=== PATIENT | male | born 1965 | race Caucasian/White ===

== ENCOUNTER 2018-12-01 11:52 | Inpatient (IN) | payer OTHER ==
[~2018-12-01] VITALS: Ht 165.1 cm; Wt 84.0 kg
--- NOTE | 2018-12-01 12:19 | PHYS DOC ---
Past History Past Medical History: No Pertinent History Past Surgical History: Other Alcohol Use: None Drug Use: None Adult General Chief Complaint Chief Complaint: INSECT BITE HPI HPI 53-year-old male presents with cellulitis and abscess. The patient has had this lesion for days. He has been seen by another physician a couple of times. He had lanced twice, but no incision. He was placed on unknown antibiotic. He has only had 3 doses. The redness is spreading. He now has some swelling in the inferior elbow. He was sent here by a physician because they felt the patient might need IV antibiotics and an incision and drain. He denies fever or chills. He has no other complaints. Review of Systems Review of Systems Constitutional: Denies fever or chills [] Eyes: Denies change in visual acuity, redness, or eye pain [] HENT: Denies nasal congestion or sore throat [] Respiratory: Denies cough or shortness of breath [] Cardiovascular: No additional information not addressed in HPI [] GI: Denies abdominal pain, nausea, vomiting, bloody stools or diarrhea [] : Denies dysuria or hematuria [] Musculoskeletal: Denies back pain or joint pain [] Integument: Abscess and cellulitis to the left forearm[] Neurologic: Denies headache, focal weakness or sensory changes [] Endocrine: Denies polyuria or polydipsia [] All other systems were reviewed and found to be within normal limits, except as documented in this note. Allergies Allergies Allergies Coded Allergies Type Severity Reaction Last Updated Verified Penicillins Allergy Unknown 12/01/18 Yes Physical Exam Physical Exam Constitutional: Well developed, well nourished, no acute distress, non-toxic appearance. [] HENT: Normocephalic, atraumatic, bilateral external ears normal, oropharynx moist, no oral exudates, nose normal. [] Eyes: PERRLA, EOMI, conjunctiva normal, no discharge. [] Neck: Normal range of motion, no tenderness, supple, no stridor. [] Cardiovascular:Heart rate regular rhythm, no murmur [] Lungs & Thorax: Bilateral breath sounds clear to auscultation [] Abdomen: Bowel sounds normal, soft, no tenderness, no masses, no pulsatile masses. [] Skin: Erythema of the entire left forearm from wrist to elbow, warmth, 3 cm fluctuant area consistent with abscess.[] Back: No tenderness, no CVA tenderness. [] Extremities: No tenderness, no cyanosis, no clubbing, ROM intact, no edema. [] Neurologic: Alert and oriented X 3, normal motor function, normal sensory function, no focal deficits noted. [] Psychologic: Affect normal, judgement normal, mood normal. [] Current Patient Data Vital Signs Vital Signs Date Time Temp Pulse Resp B/P (MAP) Pulse Ox O2 Delivery O2 Flow Rate FiO2 12/01/18 12:00 97.6 87 20 98 Room Air EKG EKG [] Radiology/Procedures Radiology/Procedures [] Course & Med Decision Making Course & Med Decision Making Pertinent Labs and Imaging studies reviewed. (See chart for details) The patient's labs are unremarkable. His expanding cellulitis is concerning. I believe he needs IV antibiotics. I have placed him on vancomycin and Rocephin. I performed an I&D and sent and abscess culture. See incision and drain note for more details. I discussed the patient with Dr. Winston and he has accepted him for admission. [] Dragon Disclaimer Dragon Disclaimer This electronic medical record was generated, in whole or in part, using a voice recognition dictation system. Incision and Drainage Indication: Cellulitis and abscess of the forearm Procedure: I obtained verbal consent from the patient for incision and drainage of his forearm abscess. The skin was prepped with alcohol solution. 2% lidocaine with epinephrine was used, a total of 1 mL. I then made a 5 mm incision in the middle of the fluctuant area. There was purulent discharge. No wound culture was obtained. Loculations were broken up with a sterile Q-tip. Further review material was expressed. The wound was left open and a clean dressing was applied. The patient was started on antibiotics. The patient tolerated the procedure well. Complications: None Departure Departure: Impression: Primary Impression: Cellulitis and abscess of upper extremity Disposition: ADMITTED INPATIENT Admitting Physician: Erendira Winston Condition: STABLE Referrals: PCP,OTONIEL (PCP) NAYLA LEDESMA DO Dec 01, 2018 12:19
[2018-12-01] MEDS ORDERED: IV NORMAL SALINE 1,000ML 1,000 ML IV ONE (12:30)
[2018-12-01 12:41] LABS: BASO % 0 % (0-3); EOS # 0.1 x10^3/uL (0.0-0.7); EOS % 1 % (0-3); HEMATOCRIT 43.7 % (39.0-53.0); LYMPH # 1.1 x10^3/uL (1.0-4.8); LYMPH % 10 % (24-48); MEAN CORPUSCULAR HEMOGLOBIN 33 pg (25-35); MEAN CORPUSCULAR HGB CONC 34 g/dL (31-37); MEAN CORPUSCULAR VOLUME 95 fL (79-100); MONO # 1.3 x10^3/uL (0.0-1.1); MONO % 12 % (0-9); NEUT # 8.3 x10^3uL (1.8-7.7); NEUT % 77 % (31-73); PLATELET COUNT 285 x10^3/uL (140-400); RED BLOOD COUNT 4.59 x10^6/uL (4.30-5.70); RED CELL DISTRIBUTION WIDTH 12.9 % (11.5-14.5); WHITE BLOOD COUNT 10.8 x10^3/uL (4.0-11.0)
[2018-12-01 12:51] LABS: ALBUMIN 3.9 g/dL (3.4-5.0); ALBUMIN/GLOBULIN RATIO 0.9 (1.0-1.7); CALCIUM 9.5 mg/dL (8.5-10.1); CREATININE 1.4 mg/dL (0.7-1.3); POTASSIUM 4.3 mmol/L (3.5-5.1); TOTAL BILIRUBIN 0.8 mg/dL (0.2-1.0); TOTAL PROTEIN 8.3 g/dL (6.4-8.2)
[2018-12-01] MEDS ORDERED: IV NORMAL SALINE 50ML 50 ML ONE (13:34)
[2018-12-01] MEDS ORDERED: cefTRIAXone SODIUM 1 GM VIAL ONE (13:34)
[2018-12-01] MEDS ORDERED: VANCOMYCIN 2 GM in IV NORMAL SALINE 500ML 500 ML IV ONE (14:00)
[2018-12-01 14:23] VITALS: BP 161/113
[2018-12-01] MEDS ORDERED: VANCOMYCIN PER PHARMACY MC PRN (15:30)
--- NOTE | 2018-12-01 15:54 | NUR ---
Pharmacy Vancomycin Dosing Note S:Consulted to monitor and dose vancomycin started 12/01/18. O:HEYDI DONAHUE is a 53 year old M with Cellulitis, . Height: 5 feet, 5 inches Weight: 83.183877 kg [place] Body Weight: Adjusted Body Weight: Dosing Weight: Actual Other Antibiotics: MERREM 1GM IV Q8H LABS: Last BUN: 13 Last Creatinine: 1.4 Creatinine Clearance: 60.66 Last WBC: 10.8 Vancomycin Dosing: Loading Dose: 2000 mg x1 Dosing Weight: Actual Target Trough: 15-20 A: Based on: Actual weight, renal function and indication P: 1. Begin Vancomycin 1250 mg IV q12h 2. Follow up Trough level on 12/03/18 at 0130 3. Pharmacy will continue to monitor, follow and adjust therapy as needed. GARRETT LAINEZ, 12/01/18 [id number]
--- NOTE | 2018-12-01 16:02 | HP ---
ADMIT DATE: 12/01/2018 HISTORY OF PRESENT ILLNESS: The patient is a 53-year-old male patient, an inmate at [facility], who came to the Emergency Room with cellulitis and possible abscess. The patient has had this lesion for days. He has been seen by another physician a couple of times. He had lanced twice, but no incision. He was placed on an unknown antibiotic. He only took 3 doses. The redness was spreading, now has some swelling in the inferior ____ that extending back all the way to the left elbow. He was sent to the Emergency Room because it was felt that he might need IV antibiotic and then incision and drainage. He denied any fever, chills or rigors. 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 In any case, he was evaluated in the Emergency Room and was found to have markedly indurated area and cellulitis and was started on IV vancomycin and Rocephin. PAST MEDICAL HISTORY: Significant for migraine headache and traumatic brain injury. PAST SURGICAL HISTORY: Significant for bilateral orchiopexy. ALLERGIES: He is allergic to PENICILLIN. MEDICATIONS: He is currently on no medication. FAMILY HISTORY: He has 2 brothers. The younger brother was shot to . The other brother and younger sister are both healthy. His father at the age of 77 because of Alzheimer disease. Mother at age of 67 because of the complication of diabetes, COPD, and pulmonary embolism. SOCIAL HISTORY: He is , has 2 daughters and 1 son. He is an ex-smoker, quit 5 years ago. 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 REVIEW OF SYSTEMS: The patient denied any blurring of vision, cataract, glaucoma or macular degeneration. Denied any earache, tinnitus or sensorineural deafness. Denied any nosebleeds, stuffy nose or postnasal drip. Denied any sore throat, sore tongue, toothache, hoarseness of voice or difficulty swallowing. He denied any nausea, vomiting, diarrhea or constipation. Denied any hematemesis, melena or hematochezia. Denied any dysuria, frequency or hematuria. Denied any chest pain, shortness of breath, orthopnea, paroxysmal nocturnal dyspnea. Denied any cough, phlegm or hemoptysis. Denied any chills, rigors or fever. PHYSICAL EXAMINATION: GENERAL: When I examined him, he looked well and was clearly in no apparent respiratory distress. No pallor, jaundice, cyanosis or thyromegaly. No jugular venous distention. No lower limb edema. VITAL SIGNS: His heart rate was 77, blood pressure was 141/86, temperature was 97.6, respiratory rate was 20, and oxygen saturation was 97% on room air. HEAD, EYES, EARS, NOSE AND THROAT: Showed normocephalic, atraumatic. NECK: Supple. HEART: Showed normal first and second heart sounds with no gallop, rub or murmur. CHEST: Clear to auscultation. No crepitation or rhonchi. ABDOMEN: Distended, soft, nontender. NEUROLOGIC: He was awake, alert, responding appropriately. All cranial nerves intact. EXTREMITIES: He moves extremities without difficulty. He ambulates without assistance or assistive devices. Examination of the left upper extremity compared to the right showed that he has an area of erythema involving the left forearm extending all the way to the distal aspect of the left arm and has also markedly indurated area with an area that has been apparently incised by the physician there. It is markedly indurated. I not see any fluctuating areas. LABORATORY DATA: His lab work showed that his white cell count was 10,800, hemoglobin 15, hematocrit 44, MCV 95, and platelet count 285,000. His chemistry showed a serum sodium 139, potassium 4.3, chloride 102, bicarbonate 27, anion gap of 10, BUN 13, creatinine 1.4, estimated GFR was 53 mL per minute. Her glucose 101, calcium was 9.5. Total bilirubin, AST, ALT, alkaline phosphatase were normal. Total protein was 8.3, albumin 3.9. His lactic acid was 1.1. IMPRESSION: In summary, this is a 53-year-old male patient, an inmate at [facility], who came in with marked redness and swelling of his left forearm. Apparently, it was lanced twice before and was started on oral antibiotic, the name of which he does not know. Basically, culture was taken from the wound and the patient was started on IV vancomycin as well as ceftriaxone. I will continue with these antibiotics, continue with pain management and I will also arrange for him to have a CT scan of his left forearm and to see if there is any fluid collection that can be incised and drained. JARON OAKES MD DR: DELFIN/darleen JOB#: [id number] / [id number]
--- NOTE | 2018-12-01 16:07 | NUR ---
PT is able to verbalize understanding of poc and orientation to unit. PT report his is incarcerated at [facility] and does work at [employer]. 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 Pt was unsure if he hurt it when welding or was a spider bite. PT has had it lanced twice at the [facility] [facility]. The Ed today did I and D and culture as well. PT is resting in bed. PT does not need to have a guard, but cannot leave the campus. Call number in chart when pt is to be dcYani Wheeler RN
[2018-12-01] MEDS: IBUPROFEN 800 MG TABLET. PO PRN (17:22)
[2018-12-01] MEDS: MEROPENEM 1 GM in IV NORMAL SALINE 100ML 100 ML IV SCH (17:29)
--- NOTE | 2018-12-01 17:30 | RAD ---
CT UPPR EXTREMTY WO CONTRST LT Indication: Mid forearm posterior buttock bifid versus foreign body. Drainage x2. Exposure: One or more of the following individualized dose reduction techniques were utilized for this examination: 1. Automated exposure control 2. Adjustment of the mA and/or kV according to patient size 3. Use of iterative reconstruction technique. Technique: Standard imaging without intravenous contrast. Findings: Ill-defined stranding density within the subcutaneous fat at the posterior forearm from the elbow through the wrist. This is compatible with edema or cellulitis. No evidence of an organized drainable fluid collection or abscess although CT can be relatively insensitive for small collection. No evidence of radiopaque or metallic foreign body in the soft tissues. No evidence of bone destruction. No acute fracture. No periosteal reaction. IMPRESSION: Diffuse soft tissue edema or cellulitis along the posterior forearm. No evidence of drainable fluid collection or radiopaque/metallic foreign body. Electronically signed by: Ted Baca MD (12/01/2018 5:27 PM) [facility]
[2018-12-01 18:24] VITALS: BP 144/91
[2018-12-01] MEDS: HYDROcodone/APAP 5/325MG 1 TAB TABLET PO PRN (20:31)
[2018-12-01 20:33] VITALS: BP 138/92
[2018-12-01 23:35] VITALS: BP 128/78
[2018-12-02] MEDS: MEROPENEM 1 GM in IV NORMAL SALINE 100ML 100 ML IV SCH ×3 (01:45→17:59)
[2018-12-02] MEDS: IBUPROFEN 800 MG TABLET. PO PRN ×2 (01:51→20:33)
[2018-12-02] MEDS: VANCOMYCIN 1.25 GM in IV NORMAL SALINE 250ML 250 ML IV SCH ×2 (02:33→15:11)
[2018-12-02 05:32] VITALS: BP 123/68
[2018-12-02] MEDS: ACETAMINOPHEN 325 MG TABLET PO PRN (05:43)
[2018-12-02 06:36] LABS: HEMATOCRIT 41.2 % (39.0-53.0); HEMOGLOBIN 14.4 g/dL (13.0-17.5); RED BLOOD COUNT 4.31 x10^6/uL (4.30-5.70); WHITE BLOOD COUNT 6.6 x10^3/uL (4.0-11.0)
[2018-12-02 06:45] LABS: CALCIUM 9.2 mg/dL (8.5-10.1); CREATININE 1.4 mg/dL (0.7-1.3); POTASSIUM 4.6 mmol/L (3.5-5.1)
[2018-12-02] MEDS: HYDROcodone/APAP 5/325MG 1 TAB TABLET PO PRN ×2 (08:52→15:20)
[2018-12-02 11:21] VITALS: BP 120/72
[2018-12-02 11:42] VITALS: BP 148/81
--- NOTE | 2018-12-02 12:18 | NUR ---
Wound care provided to wound on patient's left forearm this shift. Wound bed was open, slight amount of white/orange drainage was present. Cleansed area with normal saline, applied Aquacel AG over open area, covered with gauze and kerlix. Patient complained of pain during dressing change. Patient educated on proper hand washing technique, importance of keeping open wound covered. Patient verbally verified understanding of education received .
[2018-12-02 15:00] VITALS: BP 159/81
[2018-12-02] MEDS: MORPHINE SULFATE 4 MG/ML DISP.SYRIN. IV PRN ×2 (17:58→20:49)
[2018-12-02] MEDS: LACTOBACILLUS RHAMNOSUS GG 1 CAPSULE. PO SCH (20:33)
[2018-12-02 23:00] VITALS: BP 144/93
[2018-12-03 02:00] LABS: VANC TR 13.8 mcg/mL (10.0-20.0)
[2018-12-03] MEDS: MEROPENEM 1 GM in IV NORMAL SALINE 100ML 100 ML IV SCH ×3 (02:06→17:58)
[2018-12-03] MEDS: ACETAMINOPHEN 325 MG TABLET PO PRN ×2 (02:13→20:35)
[2018-12-03] MEDS: VANCOMYCIN 1.25 GM in IV NORMAL SALINE 250ML 250 ML IV SCH ×2 (02:52→14:57)
--- NOTE | 2018-12-03 04:02 | PN ---
DATE: 12/02/2018 ATTENDING PHYSICIAN: Dr. Erendira Winston SUBJECTIVE: Left forearm pain, pain managed; however, oral pain meds may not be adequate and morphine has been ordered. OBJECTIVE FINDINGS: VITAL SIGNS: Blood pressure today is 148/81, pulse is 100 and regular. He is afebrile. Adequate saturation 95% on room air. HEENT: Head is without trauma. Pupils are reactive. Sclerae nonicteric. Oropharynx is clear. NECK: Supple, no bruits identified. LUNGS: Otherwise clear. CARDIOVASCULAR: Showed regular heart tones. No obvious gallops. Peripheral pulses are palpable and full. ABDOMEN: Soft, scaphoid, nontender. EXTREMITIES: Showed swelling and erythema of the lateral posterior portion of left forearm. There is a slight open wound. No obvious drainage. There is induration of soft tissue. CT of the forearm showed no evidence of foreign objects, foreign bodies nor abscess or fluid collection. NEUROLOGIC: Focally intact. ASSESSMENT: 1. A 53-year-old gentleman with cellulitis of the left forearm. 2. Most likely underlying Staphylococcus infection. 3. He has had incision and drainage twice. There is no obvious abscess to be drained. PLAN: 1. Continue antibiotics as ordered. 2. Pain control. I have ordered morphine in lieu of his Lortab. 3. Diet as tolerated. 4. We do see improvement. He should be ready for discharge with oral antibiotics in a few more days. DAMION VICTORIA MD DR: GERRY/darleen JOB#: [id number] / [id number]
[2018-12-03 06:04] VITALS: BP 132/85
[2018-12-03] MEDS: IBUPROFEN 800 MG TABLET. PO PRN ×2 (06:07→08:50)
[2018-12-03] MEDS: LACTOBACILLUS RHAMNOSUS GG 1 CAPSULE. PO SCH ×2 (08:48→20:35)
--- NOTE | 2018-12-03 10:36 | NUR ---
Wound Care Wound care consult for LFA abscess. Pt has open area to left forearm with swelling are erythema surrounding it. Cleansed wound and applied Aquacel Ag, foam and Hypafix tape, recommend to change every 2-3 days. No other wounds noted on full skin inspection. WC will continue to follow for possible changes.
[2018-12-03 10:43] VITALS: BP 143/88
[2018-12-03 15:35] VITALS: BP 135/87
--- NOTE | 2018-12-03 16:37 | NUR ---
Pt alert and oriented times 4. Pt frequently ambulated in room. Pt complains of headaches since yesterday. Does tolerate narcotics well. Treating pain with Tylenol and Motrin. Pt reports pain as tolerated.
[2018-12-03 19:40] VITALS: BP 138/73
[2018-12-04] MEDS: MEROPENEM 1 GM in IV NORMAL SALINE 100ML 100 ML IV SCH (01:51)
[2018-12-04] MEDS: VANCOMYCIN 1.25 GM in IV NORMAL SALINE 250ML 250 ML IV SCH (03:03)
--- NOTE | 2018-12-04 04:50 | PN ---
DATE: 12/03/2018 SUBJECTIVE: Left arm pain. He is better. Pain is managed. OBJECTIVE: GENERAL: Left forearm swelling has much improved. There is a small area of induration, minimal drainage noted, but certainly it is better. He has full range of motion and distal pulses are intact. LUNGS: Otherwise clear. ABDOMEN: Soft. EXTREMITIES: Showed minimal edema in the left arm. ASSESSMENT: 1. Cellulitis to the left forearm, improving. 2. Most likely underlying Staphylococcus infection, treated. 3. Previous incision and drainage. PLAN: 1. Continue antibiotics as ordered in the day. 2. Pain and nausea control. 3. Tentative discharge home with oral antibiotics in the morning. DAMION VICTORIA MD DR: GERRY/darleen JOB#: [id number] / [id number]
[2018-12-04 05:17] VITALS: BP 138/55
--- NOTE | 2018-12-04 08:51 | NUR ---
Pt D/C back to [facility] with self care. Pt is given all belongings and d/c instructions. Pt is also given prescription for Percocet and Vantin. Patient's IV is removed with no complications. D/C wound photos taken. Patient ambulated of unit accompanied by guards form [facility].
--- NOTE | 2018-12-04 10:55 | DS ---
DATE OF DISCHARGE: 12/04/2018 ATTENDING PHYSICIAN: Dr. Winston. FINAL DISCHARGE DIAGNOSES: 1. Cellulitis of the left arm, improved. 2. Staphylococcus aureus infection, most likely methicillin-resistant. 3. History of migraine headaches. 4. History of traumatic brain injury. HISTORY AND PHYSICAL: This is a 53-year-old gentleman who is currently serving a sentence at the local [facility]. He was at a work release program. He sustained an injury and developed cellulitis. He had an abscess in the left forearm. He has had 2 previous I and D at the incision. He was on an unknown antibiotic. He was sent to the ER from the long-term for further evaluation and he was not getting any better. The patient is not a good historian and he could not tell us what he had done. PHYSICAL EXAMINATION: Please see the dictated note. PERTINENT LABORATORY AND X-RAY STUDIES: At this hospital, his hemoglobin was 15.0 g/dL, white count 10,000. Chemistry panel showed normal BUN and creatinine, electrolytes, creatinine is 1.4 mg/dL, nonfasting blood sugar of 101. Cultures of the wound did grow out Staphylococcus aureus species. I could not find the sensitivity. Blood cultures were negative at 72 hours. COURSE IN THE HOSPITAL: The patient was admitted and he had pain control. A CT scan of the arm did not show any evidence of new abscess. He responded well to IV antibiotics in the form of meropenem and Vantin. He received 4 full days of intravenous antibiotic. Swelling improved and he has some localized erythema that was resolved. At this time, there is no further abscess that needs to be addressed. On the fifth hospital day, the patient was discharged home with Vantin 200 mg p.o. b.i.d. for 7 more days, Percocet 10/325 one every 6 hours as needed for pain. [facility] We notified the facility to come pick the patient up, prescriptions were written. The patient was then discharged from our hospital in stable condition with explicit instructions for followup care. Total discharge time spent 37 minutes. DAMION VICTORIA MD DR: GERRY/darleen JOB#: [id number] / [id number] JARON Rosenthal MD
== END 2018-12-04 08:40 | disposition home or self-care (01) | DRG 603 ==
LOC: EEVIPCON 11:52 → ER 11:52 → 1 SOUTH 13:15 → ER 14:05
PROVIDERS: ADMIT Internal Medicine; ATTEND Internal Medicine
DX: L03.114 Cellulitis of left upper limb (principal); B95.61 Methicillin susceptible Staphylococcus aureus infection as the cause of diseases classified elsewhere; W57.XXXA Bitten or stung by nonvenomous insect and other nonvenomous arthropods, initial encounter; Z82.0 Family history of epilepsy and other diseases of the nervous system; Z82.5 Family history of asthma and other chronic lower respiratory diseases; Z83.3 Family history of diabetes mellitus; Z87.820 Personal history of traumatic brain injury; Z87.891 Personal history of nicotine dependence; L02.414 Cutaneous abscess of left upper limb; G43.909 Migraine, unspecified, not intractable, without status migrainosus; Z88.0 Allergy status to penicillin; Z79.899 Other long term (current) drug therapy; S40.862A Insect bite (nonvenomous) of left upper arm, initial encounter; Y93.89 Activity, other specified; Y92.89 Other specified places as the place of occurrence of the external cause; Y99.8 Other external cause status
CPT/HCPCS: 10060; 36415; 73200; 80048; 80053; 80202; 83605; 85025; 85027; 87040; 87070; 87186; 87641; 96374; 96375; J0696; J2185; J2270; J3010; J3370; J7040; J7050; 99285-25; J7030